=== PATIENT | female | born 1965 | race Two or more races ===

== ENCOUNTER 2020-08-22 17:11 | Inpatient (IN) | payer OTHER ==
[~2020-08-22] VITALS: Ht 160 cm; Wt 73.1 kg
--- NOTE | 2020-08-22 17:18 | NUR ---
BIB EMS FROM IN [facility] AFTER PT HAD C/O RUQ ABD PAIN STARTED 3-4 DAYS AGO WORSENED W/ FOOD. TODAY AT 1100 PT PAIN INCREASED. NONRADIATIONG. NONREPRODUCIBLE. GIVEN 100 MCG FENTANYL AND 4 MG ZOFRAN BRIDGES SUPERVISOR. VS BRIDGES SUPERVISOR HR 61, 100% 2L NC, BP 146/77. PT RESTING ON GURNEY. NADN. MONITORS APPLIED. VSS ON RA. WARM BLANKET PROVIDED. CALL LIGHT IN REACH.
[2020-08-22] MEDS ORDERED: HYDROmorphone 1 MG/ML, 1ML INJ ONE ×2 (17:56→22:04)
[2020-08-22] MEDS ORDERED: SODIUM CHLORIDE FLUSH 10ML SYR IVF ONE (18:00)
[2020-08-22] MEDS ORDERED: HYDROmorphone 1 MG/ML, 1ML INJ IV ONE ×2 (18:00→22:00)
[2020-08-22 18:07] LABS: MICROSCOPIC INDICATED
--- NOTE | 2020-08-22 18:58 | NUR ---
REPORT RECEIVED FROM DANIEL FUENTES
--- NOTE | 2020-08-22 18:59 | NUR ---
PT RESTING ON [place]. S. REPORT GIVEN TO ALFREDO SILVERIO.
[2020-08-22 19:10] LABS: BASOPHILS % (AUTO) 0 % (0-1); EOSINOPHILS % (AUTO) 0 % (1-7); LYMPHOCYTES % (AUTO) 4 % (22-44); MEAN CORPUSCULAR HEMOGLOBIN 29.2 pg (27.0-34.8); MEAN CORPUSCULAR HGB CONC 33.2 g/dL (32.4-35.8); MEAN PLATELET VOLUME 8.2 fL (7.4-10.4); MONOCYTES % (AUTO) 4 % (2-9); NEUTROPHILS % (AUTO) 93 % (42-75); PLATELET COUNT 258 x10^3/uL (130-400); RED CELL DISTRIBUTION WIDTH 14.2 % (9.6-15.2)
--- NOTE | 2020-08-22 19:10 | NUR ---
PT SITTING UPRIGHT ON TERI PU[place], VSS. PT REPORTS SOME RELIEF OF PAIN. PT DENIES ANY ADDITIONAL NEEDS AT THIS TIME. CALL LIGHT AND BELONGINGS WITHIN REACH.
[2020-08-22 19:21] LABS: ALANINE AMINOTRANSFERASE 577 U/L (12-78); ALBUMIN 3.7 g/dL (3.4-5.0); ANION GAP 6 mmol/L (5-15); CALCIUM 9.4 mg/dL (8.5-10.1); CHLORIDE 106 mmol/L (98-107); CREATININE 0.73 mg/dL (0.55-1.02)
[2020-08-22 19:23] LABS: ALKALINE PHOSPHATASE 645 U/L (45-117); BILIRUBIN,TOTAL 2.1 mg/dL (0.2-1.0); TOTAL PROTEIN 7.6 g/dL (6.4-8.2)
--- NOTE | 2020-08-22 20:02 | NUR ---
PT TO MRI
[2020-08-22] MEDS ORDERED: CEFOTETAN PMX 1GM/50ML 50 ML IVPB ONE (21:30)
--- NOTE | 2020-08-22 21:45 | NUR ---
PT REPORTING INCREASED PAIN, REQUESTING ADDITIONAL DOSE OF PAIN MEDICATION, ERP AWARE. WILL MEDICATE PER EMAR. NO ADDITIONAL NEEDS AT THIS TIME
[2020-08-22] MEDS ORDERED: SODIUM CHLORIDE FLUSH 10ML SYR IVF PRN (22:00)
[2020-08-22] MEDS ORDERED: SODIUM CHLORIDE 0.9% 1,000 ML IV ONE (22:00)
--- NOTE | 2020-08-22 22:05 | NUR ---
THROUGHPUT RN::DR. LUGO AWARE OF PT.
--- NOTE | 2020-08-22 22:19 | NUR ---
Pt to be admitted to MED/SURG, room 464. Report called to OMAR FUENTES.
[2020-08-22 22:58] VITALS: BP 124/68
[2020-08-22] MEDS ORDERED: BISACODYL 10 MG SUPP PR PRN (23:00)
[2020-08-22] MEDS ORDERED: ONDANSETRON 2MG/ML, 2ML IVPush PRN (23:00)
[2020-08-22] MEDS: LACTATED RINGERS 1,000 ML IV SCH (23:23)
[2020-08-23 00:50] VITALS: BP 104/68
[2020-08-23] MEDS: LACTATED RINGERS 1,000 ML IV SCH ×3 (04:15→23:17)
[2020-08-23] MEDS: morphine SULFATE 10 MG/ML, 1ML IVPush PRN ×2 (04:21→21:15)
[2020-08-23 05:02] LABS: BASOPHILS % (AUTO) 0 % (0-1); EOSINOPHILS % (AUTO) 0 % (1-7); LYMPHOCYTES % (AUTO) 13 % (22-44); MEAN CORPUSCULAR HEMOGLOBIN 29.7 pg (27.0-34.8); MEAN CORPUSCULAR HGB CONC 33.5 g/dL (32.4-35.8); MEAN PLATELET VOLUME 8.1 fL (7.4-10.4); MONOCYTES % (AUTO) 6 % (2-9); NEUTROPHILS % (AUTO) 81 % (42-75); PLATELET COUNT 245 x10^3/uL (130-400); RED BLOOD COUNT 4.26 x10^6/uL (3.82-5.3); RED CELL DISTRIBUTION WIDTH 14.1 % (9.6-15.2)
[2020-08-23 05:12] LABS: ALBUMIN 3.2 g/dL (3.4-5.0); ANION GAP 7 mmol/L (5-15); CALCIUM 8.9 mg/dL (8.5-10.1); CHLORIDE 107 mmol/L (98-107)
[2020-08-23 05:19] LABS: ALANINE AMINOTRANSFERASE 652 U/L (12-78); ALKALINE PHOSPHATASE 598 U/L (45-117); BILIRUBIN,TOTAL 3.1 mg/dL (0.2-1.0); CREATININE 0.58 mg/dL (0.55-1.02); TOTAL PROTEIN 6.7 g/dL (6.4-8.2)
[2020-08-23 07:33] VITALS: BP 106/66
[2020-08-23 10:31] LABS: CHOL/HDL RATIO 2.3; LDL/HDL RATIO 1.2 (0.5-3.0)
[2020-08-23 13:15] VITALS: BP 112/73
[2020-08-23] MEDS: CEFTRIAXONE 1,000 MG in DEXTROSE 5% 50 ML IVPB SCH (14:25)
[2020-08-23 20:20] VITALS: BP 120/75
[2020-08-24 01:56] VITALS: BP 147/78
[2020-08-24] MEDS: CEFTRIAXONE 1,000 MG in DEXTROSE 5% 50 ML IVPB SCH ×2 (02:31→14:42)
[2020-08-24 05:55] LABS: BASOPHILS % (AUTO) 1 % (0-1); EOSINOPHILS % (AUTO) 0 % (1-7); LYMPHOCYTES % (AUTO) 20 % (22-44); MEAN CORPUSCULAR HEMOGLOBIN 29.5 pg (27.0-34.8); MEAN CORPUSCULAR HGB CONC 33.3 g/dL (32.4-35.8); MONOCYTES % (AUTO) 7 % (2-9); NEUTROPHILS % (AUTO) 72 % (42-75); PLATELET COUNT 249 x10^3/uL (130-400); RED BLOOD COUNT 4.25 x10^6/uL (3.82-5.3)
[2020-08-24 06:03] LABS: ALANINE AMINOTRANSFERASE 522 U/L (12-78); ALBUMIN 3.2 g/dL (3.4-5.0); ANION GAP 8 mmol/L (5-15); CALCIUM 8.8 mg/dL (8.5-10.1); CHLORIDE 108 mmol/L (98-107); CREATININE 0.62 mg/dL (0.55-1.02)
[2020-08-24 06:05] LABS: ALKALINE PHOSPHATASE 623 U/L (45-117); BILIRUBIN,TOTAL 1.6 mg/dL (0.2-1.0); TOTAL PROTEIN 7.1 g/dL (6.4-8.2)
[2020-08-24 06:21] VITALS: BP 127/72
[2020-08-24] MEDS: LACTATED RINGERS 1,000 ML IV SCH ×2 (08:00→14:42)
[2020-08-24] MEDS ORDERED: PROPOFOL 50 ML ONE (08:19)
[2020-08-24] MEDS ORDERED: FENTANYL PF 100 MCG/2ML ONE (08:19)
[2020-08-24] MEDS ORDERED: OMNIPAQUE 350 MG/ML, 50 ML BOTTLE ONE (08:20)
[2020-08-24] MEDS ORDERED: EPHEDRINE 50 MG/ML, 1ML IVPush PRN (08:30)
[2020-08-24] MEDS ORDERED: EPHEDRINE 50 MG/ML, 1ML IM PRN (08:30)
[2020-08-24] MEDS ORDERED: DIPHENHYDRAMINE 50 MG/ML, 1ML IVPush PRN (08:30)
[2020-08-24] MEDS ORDERED: MEPERIDINE/PF 25MG/0.5ML IVPush PRN (08:30)
[2020-08-24] MEDS ORDERED: PROMETHAZINE 25 MG/ML, 1ML IVPush PRN (08:30)
[2020-08-24] MEDS ORDERED: OXYcodone 5 MG/5 ML ORAL.SOL UDC PO PRN (08:30)
[2020-08-24] MEDS ORDERED: ONDANSETRON 2MG/ML, 2ML IVPush PRN (08:30)
[2020-08-24] MEDS ORDERED: DIAZEPAM 5 MG/ML, 2ML IVPush PRN (08:30)
[2020-08-24] MEDS ORDERED: morphine SULFATE 10 MG/ML, 1ML IVPush PRN (08:30)
[2020-08-24] MEDS ORDERED: FENTANYL PF 100 MCG/2ML IV PRN (08:30)
[2020-08-24 12:03] VITALS: BP 145/73
[2020-08-24] MEDS: PHENOL THROAT SPRAY BOTTLE MM PRN ×2 (16:14→20:58)
[2020-08-24 19:44] VITALS: BP 145/78
[2020-08-25 00:02] VITALS: BP 128/81
[2020-08-25] MEDS: LACTATED RINGERS 1,000 ML IV SCH ×3 (02:27→23:14)
[2020-08-25] MEDS: CEFTRIAXONE 1,000 MG in DEXTROSE 5% 50 ML IVPB SCH ×2 (02:27→14:24)
[2020-08-25 04:13] VITALS: BP 120/75
[2020-08-25 05:17] LABS: BASOPHILS % (AUTO) 1 % (0-1); EOSINOPHILS % (AUTO) 1 % (1-7); LYMPHOCYTES % (AUTO) 20 % (22-44); MEAN CORPUSCULAR HEMOGLOBIN 29.7 pg (27.0-34.8); MEAN CORPUSCULAR HGB CONC 33.5 g/dL (32.4-35.8); MONOCYTES % (AUTO) 7 % (2-9); NEUTROPHILS % (AUTO) 72 % (42-75); PLATELET COUNT 245 x10^3/uL (130-400); RED BLOOD COUNT 4.07 x10^6/uL (3.82-5.3); RED CELL DISTRIBUTION WIDTH 13.6 % (9.6-15.2)
[2020-08-25 05:26] LABS: ALANINE AMINOTRANSFERASE 343 U/L (12-78); ANION GAP 7 mmol/L (5-15); CALCIUM 8.5 mg/dL (8.5-10.1); CHLORIDE 109 mmol/L (98-107); CREATININE 0.49 mg/dL (0.55-1.02)
[2020-08-25 05:28] LABS: ALKALINE PHOSPHATASE 505 U/L (45-117); BILIRUBIN,TOTAL 0.8 mg/dL (0.2-1.0); TOTAL PROTEIN 6.8 g/dL (6.4-8.2)
[2020-08-25] MEDS ORDERED: BUPIVACAINE/PF 0.5% ONE (06:57)
[2020-08-25] MEDS ORDERED: EPINEPHRINE 1 MG/ML, 1ML ONE (06:57)
[2020-08-25 07:05] VITALS: BP 136/78
[2020-08-25] MEDS ORDERED: DEXAMETHASONE 4 MG/ML, 1ML ONE (07:08)
[2020-08-25] MEDS ORDERED: PROPOFOL 10 MG/ML, 20ML ONE (07:08)
[2020-08-25] MEDS ORDERED: LIDOCAINE-MPF 2% ,5ML ONE (07:08)
[2020-08-25] MEDS ORDERED: MIDAZOLAM 1 MG/ML, 2ML ONE (07:08)
[2020-08-25] MEDS ORDERED: CEFAZOLIN 1,000 MG ONE (07:08)
[2020-08-25] MEDS ORDERED: ROCURONIUM 10MG/ML,5ML ONE (07:08)
[2020-08-25] MEDS ORDERED: FENTANYL PF 100 MCG/2ML ONE ×2 (07:08→12:56)
[2020-08-25] MEDS ORDERED: ONDANSETRON 2MG/ML, 2ML ONE (07:08)
[2020-08-25] MEDS ORDERED: SODIUM CHLORIDE 0.9% PF 10ML ONE (07:10)
[2020-08-25] MEDS ORDERED: OXYcodone 5 MG/5 ML ORAL.SOL UDC ONE (12:57)
[2020-08-25] MEDS ORDERED: ACETAMINOPHEN 650 MG/20.3 ML UDC ONE (12:58)
[2020-08-25] MEDS ORDERED: HYDROmorphone 1 MG/ML, 1ML INJ IVPush PRN (13:00)
[2020-08-25] MEDS ORDERED: LABETALOL 5MG/ML, 20ML IV PRN (13:00)
[2020-08-25] MEDS ORDERED: ONDANSETRON 2MG/ML, 2ML IVPush PRN (13:00)
[2020-08-25] MEDS ORDERED: MEPERIDINE/PF 25MG/0.5ML IVPush PRN (13:00)
[2020-08-25] MEDS ORDERED: hydrALAzine 20 MG/ML, 1ML IV PRN (13:00)
[2020-08-25] MEDS ORDERED: DIAZEPAM 5 MG/ML, 2ML IVPush PRN (13:00)
[2020-08-25] MEDS ORDERED: OXYcodone 5 MG/5 ML ORAL.SOL UDC PO PRN (13:00)
[2020-08-25] MEDS: FENTANYL PF 100 MCG/2ML IV PRN ×2 (13:04→13:14)
[2020-08-25] MEDS ORDERED: MEPERIDINE/PF 25MG/ML,1ML ONE (13:21)
[2020-08-25] MEDS ORDERED: ACETAMINOPHEN 650 MG/20.3 ML UDC PO ONE (13:30)
[2020-08-25] MEDS ORDERED: hydrALAzine 20 MG/ML, 1ML ONE (13:32)
[2020-08-25 14:00] VITALS: BP 145/75
[2020-08-25] MEDS: morphine SULFATE 10 MG/ML, 1ML IVPush PRN (14:41)
[2020-08-25 19:31] VITALS: BP 124/70
[2020-08-26 00:16] VITALS: BP 126/74
[2020-08-26] MEDS: CEFTRIAXONE 1,000 MG in DEXTROSE 5% 50 ML IVPB SCH (02:49)
[2020-08-26 04:12] VITALS: BP 124/72
[2020-08-26 06:17] LABS: ANION GAP 8 mmol/L (5-15); CALCIUM 8.7 mg/dL (8.5-10.1); CHLORIDE 108 mmol/L (98-107)
[2020-08-26 06:20] LABS: ALANINE AMINOTRANSFERASE 242 U/L (12-78); ALKALINE PHOSPHATASE 428 U/L (45-117); BILIRUBIN,TOTAL 0.6 mg/dL (0.2-1.0); CREATININE 0.51 mg/dL (0.55-1.02); TOTAL PROTEIN 6.8 g/dL (6.4-8.2)
[2020-08-26 07:45] VITALS: BP 132/81
[2020-08-26] MEDS ORDERED: POTASSIUM CHLORIDE 20 MEQ TAB.ER.PRT PO ONE (08:00)
[2020-08-26] MEDS ORDERED: IBUP-1221 PO (12:51)
[2020-08-26 13:14] VITALS: BP 122/76
== END 2020-08-26 14:00 | disposition home or self-care (01) | DRG 417 ==
LOC: ED 17:35 → EDIP 21:36 → 4NE 22:45 → DCLOUNGE 08-26 13:51
PROVIDERS: ADMIT Family Medicine; ATTEND Family Medicine
PROC: 0FC98ZZ Extirpation of Matter from Common Bile Duct, Via Natural or Artificial Opening Endoscopic (ICD-10-PCS; 2020-08-24)
PROC: BF131ZZ Fluoroscopy of Gallbladder and Bile Ducts using Low Osmolar Contrast (ICD-10-PCS; 2020-08-24)
PROC: 8E0W4CZ Robotic Assisted Procedure of Trunk Region, Percutaneous Endoscopic Approach (ICD-10-PCS; 2020-08-25)
PROC: 0FT44ZZ Resection of Gallbladder, Percutaneous Endoscopic Approach (ICD-10-PCS; principal; 2020-08-25 07:30)
DX: K80.67 Calculus of gallbladder and bile duct with acute and chronic cholecystitis with obstruction (principal); K85.10 Biliary acute pancreatitis without necrosis or infection; Z20.822 Contact with and (suspected) exposure to COVID-19; Z80.0 Family history of malignant neoplasm of digestive organs; Z82.49 Family history of ischemic heart disease and other diseases of the circulatory system; K82.8 Other specified diseases of gallbladder
CPT/HCPCS: 36415; 74328; 96374; 99285; J3490; S0020; 74181; 76700; 80053; 80061; 81001; 83690; 83735; 84100; 85025; 87635; 88304; G0378; J0171; J0690; J0696; J1100; J1170; J2175; J2250; J2405; J2704; J3010; Q9967; C1769; J0360; J2270; J7030; J7120